=== PATIENT | female | born 1960 | race Caucasian/White ===

== ENCOUNTER 2016-10-10 21:42 | Emergency (ER) | payer OTHER ==
[~2016-10-10 21:42] MED LIST: ACCU-CHECK SOF1 EACH MC; ACID CONTROLLER20 MG PO; ADVAIR HFA120 INHALA IH; ALPRAZOLAM0.25 M2 PO; BENTYL20 MG PO; BLOOD GLUCOSE1 EACH MC; CALCIUM-MAGNES1 EA10 PO; CLOPIDOGREL75 MG PO; DUONEB 2.5-0.5 M3 ML AEROSOL; ERGOCALCIF50000 UNIT PO; FAMOTIDINE20 MG PO; FIORICET,ESG1 TABLET PO; FLEXERIL10 MG PO; GLIPIZIDE10 MG PO; LEVOTHYROXINE75 MCG PO; MAXZIDE 37.5 M1 EACH PO; MELOXICAM15 MG PO; METFORMIN HCL1000 MG PO; MOTRIN IB200 MG PO; Maxzide 75/50 PO; NAPROXEN500 MG PO; PERCOCET 10/1 TABLET PO; PRAVACHOL40 MG PO; PRAVASTATIN SOD40 MG PO; PREDNISONE10 MG PO; PROMETHAZINE HC25 M1 PO; ROMYCIN3.5 GM LEFT EYE; ROXICODONE5 MG PO; SENNA8.6 MG PO; SPIRIVA RESPIMAT4 GM IH; SPIRIVA1 INHALATI IH; TOPAMAX25 MG PO; TYLENOL REGULA325 MG PO; ZANTAC150 M1 PO
[2016-10-10 22:19] LABS: CREATININE 1.6 mg/dL (0.6-1.3)
[2016-10-10 22:19] LABS: HEMATOCRIT 42.2 % (36.0-46.0); MCH 31.8 PG (29.0-34.0); MCHC 30.1 G/DL (30.0-36.0); NRBC (%) 0.3 /100 WBC (0-0); PLATELET COUNT 271 K/uL (156-360); RBC DIS.WIDTH-CV 13.2 % (11.8-14.6); RBC DIS.WIDTH-SD 52.4 % (39-53); WHITE BLOOD COUNT 10.7 K/uL (4.1-10.2)
[2016-10-10 22:26] LABS: MCV 105.5 FL (83-99)
[2016-10-10 22:28] LABS: AMYLASE 149 IU/L (1-118); CHLORIDE 107 mEq/L (99-109); POTASSIUM 5.9 mEq/L (3.7-5.4); SODIUM 137 mEq/L (136-147)
[2016-10-10 22:30] LABS: INTER. NORMALIZED RATIO 1.2; PROTHROMBIN TIME 11.8 (9.2-11.2)
[2016-10-10 22:31] LABS: ANION GAP 23 MEQ/L (2-14)
[2016-10-10 22:33] LABS: GLUCOSE 525 mg/dL (70-99); SERUM ETHYL ALCOHOL < 10 mg/dL
[2016-10-10 22:34] LABS: GFR ESTIMATE (CALCULATED) 27 mL/min/
[2016-10-10 22:35] LABS: UREA NITROGEN (BUN) 26 mg/dL (9-23)
[2016-10-10 22:37] LABS: LIPASE 49 U/L (1.0-51.0)
[2016-10-10 22:41] LABS: TROP-I INTERPRETATION POSITIVE; TROPONIN-I 0.88 ng/mL (0.0-0.30)
[2016-10-11 05:05] LABS: BAND NEUTROPHILS 3.6 % (0-8.0); BURR CELLS 2+; EOSINOPHIL ABS CT 0; INSTRUMENT ABS NEUTROPHIL CT 6.1 K/uL; LYMPHOCYTES 21.4 % (15.0-45.0); MACROCYTES 2+; METAMYELOCYTES 0.9 %; MYELOCYTES 1.8 %; PLAT.SUFFICIENCY ADEQUATE; POIKILOCYTOSIS 1+; SEG.NEUTROPHILS 71.4 % (46.0-76.0); TOX.VACUOLIZATION 1+; TOXIC GRANULATION 2+
== END 2016-10-11 01:50 ==
LOC: EME 21:42
PROVIDERS: Emergency Medicine
DX: I46.9 Cardiac arrest, cause unspecified (principal); I47.2 Ventricular tachycardia; I10 Essential (primary) hypertension; E11.9 Type 2 diabetes mellitus without complications; E03.9 Hypothyroidism, unspecified
CPT/HCPCS: 80047; 80048; 81003; 82150; 83605; 83690; 84484; 84999; 85025; 85610; 85730; 86850; 86900; 86901; 87040; 87077; 87186; 87801; 93005; 94002; G0480; J0171; J0282; J0461; J7050